=== PATIENT | female | born 1990 | race Caucasian/White ===

== ENCOUNTER 2019-12-16 17:38 | Emergency (ER) | payer OTHER, MEDICAID ==
[~2019-12-16] VITALS: Ht 152.4 cm; Wt 60.3 kg
[2019-12-16 17:41] VITALS: BP 140/99
--- NOTE | 2019-12-16 17:41 | NUR ---
BIBA TAKEN TO BED 11
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
[2019-12-16] MEDS ORDERED: KETOROLAC 30 MG/ML VIAL IVP ONE (18:45)
[2019-12-16] MEDS ORDERED: ONDANSETRON 4 MG/2 ML VIAL IVP ONE (18:45)
--- NOTE | 2019-12-16 19:25 | NUR ---
REPORT GIVEN TO SARAH CAMACHO.
--- NOTE | 2019-12-16 19:45 | NUR ---
RETURN FROM [facility]IA [facility]
[2019-12-16] MEDS ORDERED: fentaNYL 0.05 MG/ML VIAL IVP ONE (20:05)
--- NOTE | 2019-12-16 20:10 | NUR ---
PT STATES THAT PAIN LEVEL HAS DECREASED FROM 5/10 TO 2/10. PT DOES NOT WISH TO HAVE MORE MEDICATION AT THIS TIME
--- NOTE | 2019-12-16 21:40 | NUR ---
c-spine cleared by dr mantilla---c collar removed at this time.
[2019-12-16 21:52] VITALS: BP 115/59
--- NOTE | 2019-12-16 21:53 | NUR ---
Patient discharged with v/s stable. Written and verbal after care instructions given and explained. Patient alert, oriented and verbalized understanding of instructions. Ambulatory with steady gait. All questions addressed prior to discharge. ID band removed. Patient advised to follow up with PMD. Rx of LIDODERM, NAPROSYN, VALIUM given. Patient educated on indication of medication including possible reaction and side effects. Opportunity to ask questions provided and answered.
== END 2019-12-16 21:53 | disposition home or self-care (01) ==
LOC: MED 17:38
DX: M54.2 Cervicalgia (principal); M54.9 Dorsalgia, unspecified; R07.9 Chest pain, unspecified; V89.2XXA Person injured in unspecified motor-vehicle accident, traffic, initial encounter; Y93.89 Activity, other specified; Y92.89 Other specified places as the place of occurrence of the external cause; Y99.8 Other external cause status
CPT/HCPCS: 71045; 72040; 72072; 96374; 96375; 99284; J1885; J2405